=== PATIENT | female | born 1945 | race Caucasian/White ===

== ENCOUNTER 2018-12-15 10:06 | Emergency (ER) | payer OTHER ==
[~2018-12-15] VITALS: Ht 167.6 cm; Wt 68.0 kg
[~2018-12-15 10:06] MED LIST: CALTRATE 600600 MG; CRESTOR5 MG; DIOVAN HCT 80/11 TA1; VITA-C120 GM; VITAMIN A; [UNRECOGNIZED DRUG - OTHER]
[2018-12-15] MEDS ORDERED: MAGNESIUM250 MG (10:28)
[2018-12-15] MEDS ORDERED: SELENIUM200 MC1 (10:29)
[2018-12-15] MEDS ORDERED: BIOTIN5000 MCG (10:29)
== END 2018-12-15 12:54 | disposition home or self-care (01) ==
LOC: ER 10:06
DX: B34.9 Viral infection, unspecified (principal); J11.1 Influenza due to unidentified influenza virus with other respiratory manifestations

== ENCOUNTER 2019-03-04 05:54 | Emergency (ER) | payer OTHER ==
[~2019-03-04] VITALS: Ht 167.6 cm; Wt 68.0 kg
[~2019-03-04 05:54] MED LIST changes: +BIOTIN5000 MCG; +MAGNESIUM250 MG; +SELENIUM200 MC1
== END 2019-03-04 09:16 | disposition home or self-care (01) ==
LOC: ER 05:54
DX: N39.0 Urinary tract infection, site not specified (principal)

== ENCOUNTER 2019-03-13 13:07 | Emergency (ER) | payer OTHER ==
[~2019-03-13] VITALS: Ht 167.6 cm; Wt 68.0 kg
[2019-03-13] MEDS ORDERED: DIOVAN HCT 1601 EACH (13:43)
[2019-03-13] MEDS ORDERED: SYNTHROID50 MCG (13:48)
== END 2019-03-13 17:28 | disposition home or self-care (01) ==
LOC: ER 13:07
DX: N39.0 Urinary tract infection, site not specified (principal); B96.89 Other specified bacterial agents as the cause of diseases classified elsewhere

== ENCOUNTER → 2020-06-01 | Emergency (ER) | payer OTHER ==
[~2020-06-01] VITALS: Ht 167.6 cm; Wt 68.0 kg
[~2020-06-01] MED LIST changes: +DIOVAN HCT 1601 EACH; +SYNTHROID50 MCG; +ZINC50 M1
== END | disposition home or self-care (01) ==
LOC: ER 22:11
DX: S42.252A Displaced fracture of greater tuberosity of left humerus, initial encounter for closed fracture (principal); W18.39XA Other fall on same level, initial encounter; Y93.89 Activity, other specified; Y92.092 Bedroom in other non-institutional residence as the place of occurrence of the external cause; Y99.8 Other external cause status

== ENCOUNTER 2020-06-09 13:01 | Outpatient (CLI) | payer OTHER | END 2020-06-09 13:16 | disposition home or self-care (01) | LOC: RAD 13:01 | PROVIDERS: ATTEND Orthopaedic Surgery | DX: S42.222A 2-part displaced fracture of surgical neck of left humerus, initial encounter for closed fracture (principal) ==

== ENCOUNTER → 2020-06-17 | Outpatient (CLI) | payer OTHER | END | disposition home or self-care (01) | LOC: RAD 09:32 | PROVIDERS: ATTEND Orthopaedic Surgery | DX: S42.222A 2-part displaced fracture of surgical neck of left humerus, initial encounter for closed fracture (principal) ==

== ENCOUNTER 2020-06-25 11:40 | Outpatient (CLI) | payer OTHER | END 2020-06-25 12:09 | disposition home or self-care (01) | LOC: RAD 11:40 | PROVIDERS: ATTEND Orthopaedic Surgery | DX: M25.561 Pain in right knee (principal); M25.562 Pain in left knee; M25.551 Pain in right hip; M25.552 Pain in left hip ==

== ENCOUNTER 2020-10-28 09:33 | Outpatient (CLI) | payer OTHER | END 2020-10-28 09:35 | disposition home or self-care (01) | LOC: RAD 09:33 | PROVIDERS: ATTEND Orthopaedic Surgery | DX: S42.222D 2-part displaced fracture of surgical neck of left humerus, subsequent encounter for fracture with routine healing (principal) ==

== ENCOUNTER 2020-12-29 09:19 | Outpatient (CLI) | payer OTHER | END 2020-12-29 09:21 | disposition home or self-care (01) | LOC: RAD 09:19 | PROVIDERS: ATTEND Orthopaedic Surgery | DX: S42.222D 2-part displaced fracture of surgical neck of left humerus, subsequent encounter for fracture with routine healing (principal) ==

== ENCOUNTER → 2022-04-03 07:56 | Outpatient (CLI) | payer OTHER | END | disposition home or self-care (01) | LOC: NUCLEAR 07:56 | PROVIDERS: ATTEND Internal Medicine | DX: M79.10 Myalgia, unspecified site (principal); R53.83 Other fatigue; R52 Pain, unspecified | CPT/HCPCS: 78306; A9503 ==

== ENCOUNTER 2025-04-06 07:11 | Outpatient (CLI) | payer OTHER | END 2025-04-06 07:13 | disposition home or self-care (01) | LOC: NUCLEAR 07:11 | PROVIDERS: ATTEND Pain Medicine Interventional Pain Medicine | DX: M54.50 Low back pain, unspecified (principal) | CPT/HCPCS: 78315; A9503 ==